=== PATIENT | female | born 1990 | race Caucasian/White ===

== ENCOUNTER 2018-02-02 04:00 | Emergency (ER) | payer SELFPAY ==
[2018-02-02] MEDS ORDERED: Orphenadrine 100 MG Tab.ER PO STA (04:42)
--- NOTE | 2018-02-02 04:49 | EDM.PDOC ---
ED HPI GENERAL MEDICAL PROBLEM - General Chief Complaint: Back Pain or Injury Stated Complaint: SHOULDER AND BACK PAIN Time Seen by Provider: 02/02/18 04:14 Source of Information: Reports: Patient, Significant Other (Boyfriend) History Limitations: Reports: No Limitations - History of Present Illness INITIAL COMMENTS - FREE TEXT/NARRATIVE: The patient states that she has had pain primarily to her left scapular area, that radiates up her neck, down her left arm, and over to the right side, on and off for the past 2 years. She states that the pain makes it difficult for her to sleep. She was seen in an ER in [place] about one year ago, and told that she appeared to have muscle spasms. She saw a chiropractor in [place] about the same time. X-rays were done, which were negative. The patient states that she has tried massage, hot and cold compresses, ibuprofen, and Tylenol, without any lasting relief. She states that she just moved from [place], and has come to the ED this morning because she wants to know what is going on. The patient does not have a PCP. Back Pain Score (Numeric/FACES): 10 - Related Data Allergies Allergy/AdvReac Type Severity Reaction Status Date / Time Penicillins Allergy Other Verified 02/02/18 04:17 Home Meds: Home Meds LORazepam [Ativan] 0.5 mg PO BID PRN 02/02/18 [History] Orphenadrine [Norflex] 1 tab PO Q12H PRN #10 tab.er 02/02/18 [Rx] Past Medical History Psychiatric History: Reports: Anxiety, Panic Attack Social & Family History - Tobacco Use Smoking Status *Q: Never Smoker - Caffeine Use Caffeine Use: Reports: None - Alcohol Use Alcohol Use History: Yes Alcohol Use Frequency: Socially - Recreational Drug Use Recreational Drug Use: No - Living Situation & Occupation Living situation: Reports: , with Family (2 kids) Occupation: Unemployed ED ROS PEDIATRIC - Review of Systems Review Of Systems: ROS reveals no pertinent complaints other than HPI. ED EXAM, GENERAL (PEDS) - Physical Exam Exam: See Below Exam Limited By: No Limitations General Appearance: WD/WN, No Apparent Distress Back Exam: Other (No visible or palpable abnormality to the patient's back, such as swelling, erythema, ecchymosis, or abrasion, however, the patient reports some tenderness to palpation over the left scapular and subscapular muscles.) Extremities: Normal Inspection, Normal Range of Motion, Non-Tender, No Pedal Edema, Normal Capillary Refill Neurological: Alert, Oriented, Normal Cognition, No Motor/Sensory Deficits Psychiatric: Anxious Skin Exam: Warm, Dry, Intact, Normal Color, No Rash Course - Vital Signs Last Recorded V/S: Last Vital Signs Temp 36.3 C 02/02/18 04:12 Pulse 107 H 02/02/18 04:12 Resp 16 02/02/18 04:12 BP 122/99 H 02/02/18 04:12 Pulse Ox 99 02/02/18 04:12 - Orders/Labs/Meds Meds: Medications Discontinued Medications Generic Name Dose Route Start Last Admin Trade Name Luis A PRN Reason Stop Dose Admin Orphenadrine Citrate 100 mg 02/02/18 04:42 Norflex PO 02/02/18 04:43 ONETIME STA - Re-Assessments/Exams Free Text/Narrative Re-Assessment/Exam: 02/02/18 04:44 The patient appears to be suffering from intermittent upper back muscle spasms. I will start her on Norflex, and prescribed a five-day course. If this works, she can follow-up with Dr. Mckenna to potentially get an additional prescription. If it does not work, Dr. Mckenna could order a diagnostic workup. Departure - Departure Time of Disposition: 04:44 Disposition: Home, Self-Care 01 Condition: Good Clinical Impression: Muscle spasm of back - Discharge Information Referrals: PCP,None [Primary Care Provider] - Raysa Mckenna MD [Physician] - Additional Instructions: You were seen in the emergency room for recurrent upper back, neck, and arm pain. Based on your history and physical examination, it appears that you are suffering from muscle spasms. You have been started on the muscle relaxant Norflex. A prescription for Norflex has been sent to the [facility], [address] [place] Take one tablet every 12 hours, starting this evening, Friday, 2017, as prescribed. Follow-up with Dr. Raysa Mckenna later this week, as a primary care physician. If the Norflex works for you, she could potentially prescribe you more. If the Norflex does not work for you, she could potentially order a diagnostic workup. If any other problems, please do not hesitate to return to the ER.
== END 2018-02-02 05:04 | disposition home or self-care (01) ==
LOC: JD.ED 04:00
DX: M62.838 Other muscle spasm (principal); F41.0 Panic disorder [episodic paroxysmal anxiety]; Z88.0 Allergy status to penicillin
CPT/HCPCS: 99283; A9270

== ENCOUNTER 2018-02-03 22:47 | Emergency (ER) | payer SELFPAY ==
--- NOTE | 2018-02-04 00:41 | EDM.PDOC ---
ED HPI GENERAL MEDICAL PROBLEM - General Chief Complaint: Upper Extremity Injury/Pain Stated Complaint: LEFT SIDE SHOULDER/NECK PAIN Time Seen by Provider: 02/04/18 00:30 - History of Present Illness INITIAL COMMENTS - FREE TEXT/NARRATIVE: I went to examine the patient, only to discover the room empty. I'm told that the patient and her boyfriend left few minutes ago, without notifying the nurse. 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: Psychiatric History: Reports: Anxiety, Panic Attack Social & Family History - Family History Family Medical History: Noncontributory - Tobacco Use Smoking Status *Q: Never Smoker - Caffeine Use Caffeine Use: Reports: Coffee, Soda - Recreational Drug Use Recreational Drug Use: Yes - Living Situation & Occupation Living situation: Reports: , with Family (2 kids) Occupation: Unemployed Course - Vital Signs Last Recorded V/S: Last Vital Signs Temp 36.4 C 02/03/18 22:57 Pulse 112 H 02/03/18 22:57 Resp 18 02/03/18 22:57 BP 112/77 02/03/18 22:57 Pulse Ox 98 02/03/18 22:57 Departure - Departure Time of Disposition: 00:40 Disposition: Eloped 07 - Discharge Information Referrals: PCP,None [Primary Care Provider] -
== END 2018-02-04 00:47 | disposition left against medical advice (07) ==
LOC: JD.ED 22:47
DX: Z53.21 Procedure and treatment not carried out due to patient leaving prior to being seen by health care provider (principal)

== ENCOUNTER 2018-11-01 18:06 | Emergency (ER) | payer SELFPAY ==
[2018-11-01] MEDS ORDERED: Sodium Chloride 0.9% 1,000 ML IV SCH (19:15)
--- NOTE | 2018-11-01 19:16 | EDM.PDOC ---
ED HPI GENERAL MEDICAL PROBLEM - General Chief Complaint: Abdominal Pain Stated Complaint: LOWER RIGHT ABD PAIN Time Seen by Provider: 11/01/18 18:56 Source of Information: Reports: Patient, RN Notes Reviewed History Limitations: Reports: No Limitations - History of Present Illness INITIAL COMMENTS - FREE TEXT/NARRATIVE: Patient is a 28-year-old female who presents to the ED for the evaluation of right lower quadrant abdominal pain. The patient states that this started Friday. 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 She states she did not check her temperature so she does not know if she had a fever but she felt hot and cold at this time. She noticed some mild swelling and or a knot in her right lower quadrant. She states that today she can tolerate oral fluids okay but the right lower quadrant pain still lingers. She does not think that she can be , she has a nexplanon implant in her arm. She does not get regular periods. She states that she still has her appendix, does not have a history of ovarian cyst however her mother has a history of ovarian cysts. She would rate her pain at a 7 out of 10 today. She states that she broke up with her last boyfriend around 6 months ago, and is unsure whether or not she could possibly have STD at this time as she was not checked after she broke up with him. She denies any dysuria or vaginal discharge. Right Groin Pain Score (Numeric/FACES): 7 - Related Data Allergies Allergy/AdvReac Type Severity Reaction Status Date / Time Penicillins Allergy Other Verified 11/01/18 18:25 Home Meds: Home Meds . [No Known Home Meds] 11/01/18 [History] Past Medical History - Past Health History Medical/Surgical History: Denies Medical/Surgical History Respiratory History: Reports: Other (See Below) Other Respiratory History: PNA to R lung [employer] History: Reports: Psychiatric History: Reports: Anxiety, Panic Attack - Infectious Disease History Infectious Disease History: Reports: Chicken Pox, Shingles Social & Family History - Family History Family Medical History: Noncontributory - Tobacco Use Smoking Status *Q: Never Smoker - Caffeine Use Caffeine Use: Reports: Coffee, Soda - Recreational Drug Use Recreational Drug Use: No - Living Situation & Occupation Living situation: Reports: , with Family (2 kids) Occupation: Unemployed ED ROS GENERAL - Review of Systems Review Of Systems: See Below Constitutional: Reports: Fever, Chills HEENT: Reports: No Symptoms Respiratory: Reports: No Symptoms Cardiovascular: Reports: No Symptoms Endocrine: Reports: No Symptoms GI/Abdominal: Reports: Abdominal Pain (RLQ/pelvic), Diarrhea, Nausea, Vomiting. Denies: Constipation : Reports: Pain (RLQ/pelvic). Denies: Discharge, Dysuria, Frequency, Urgency Musculoskeletal: Reports: No Symptoms Skin: Reports: No Symptoms Neurological: Reports: No Symptoms Psychiatric: Reports: No Symptoms Hematologic/Lymphatic: Reports: No Symptoms Immunologic: Reports: No Symptoms ED EXAM, GI/ABD - Physical Exam Exam: See Below Exam Limited By: No Limitations General Appearance: Alert, WD/WN, No Apparent Distress Eyes: Bilateral: Normal Appearance Ears: Normal External Exam Nose: Normal Inspection Throat/Mouth: Normal Inspection, Normal Oropharynx Head: Atraumatic, Normocephalic Neck: Normal Inspection, Supple, Non-Tender, Full Range of Motion Respiratory/Chest: No Respiratory Distress, Lungs Clear, Normal Breath Sounds, No Accessory Muscle Use, Chest Non-Tender Cardiovascular: Normal Peripheral Pulses, Regular Rate, Rhythm, No Murmur GI/Abdominal Exam: Normal Bowel Sounds, Soft, No Distention, No Mass, Tender ( RLQ and into her lower right pelvic region into R groin.) (Female) Exam: Deferred Extremities: Normal Inspection, Normal Capillary Refill Neurological: Alert, Oriented, Normal Cognition, No Motor/Sensory Deficits Psychiatric: Normal Affect, Normal Mood Skin Exam: Warm, Dry, Intact, Normal Color, No Rash Course - Vital Signs Last Recorded V/S: Last Vital Signs Temp Pulse 78 11/01/18 18:20 Resp 16 11/01/18 18:20 BP 124/78 11/01/18 18:20 Pulse Ox 98 11/01/18 18:20 - Orders/Labs/Meds Orders: Active Orders 24 hr Category Date Time Status GC/CHLAMYDIA BY PCR [MOLEC] Stat Lab 11/01/18 19:09 Ordered Sodium Chloride 0.9% [Normal Saline] 1,000 ml Med 11/01/18 19:15 Ordered IV ASDIRECTED Medication Orders Sodium Chloride (Normal Saline) 1,000 mls @ 999 mls/hr IV ASDIRECTED MAX Last Admin: 11/01/18 19:34 Dose: 999 mls/hr Labs: Laboratory Tests 11/01/18 11/01/18 11/01/18 Range/Units 19:25 19:25 19:25 WBC 6.39 (3.98-10.04) K/mm3 RBC 4.20 (3.98-5.22) M/mm3 Hgb 12.9 (11.2-15.7) gm/L Hct 38.3 (34.1-44.9) % MCV 91.2 (79.4-94.8) fl MCH 30.7 (25.6-32.2) pg MCHC 33.7 (32.2-35.5) g/dl RDW Std Deviation 38.2 (36.4-46.3) fL Plt Count 191 (182-369) K/mm3 MPV 11.0 (9.4-12.3) fl Neutrophils % (Manual) 59 (40-60) % Band Neutrophils % 0 (0-10) % Lymphocytes % (Manual) 31 (20-40) % Atypical Lymphs % 6 % Monocytes % (Manual) 2 (2-10) % Eosinophils % (Manual) 0 L (0.7-5.8) % Basophils % (Manual) 2 H (0.1-1.2) Toxic Granulation 1+ slight Platelet Estimate Adequate Plt Morphology Comment Normal RBC Morph Comment Normal Sodium 143 (136-145) mEq/L Potassium 3.6 (3.5-5.1) mEq/L Chloride 105 (98-107) mEq/L Carbon Dioxide 29 (21-32) mEq/L Anion Gap 12.6 (5-15) BUN 14 (7-18) mg/dL Creatinine 0.7 (0.55-1.02) mg/dL Est Cr Clr Drug Dosing 110.39 mL/min Estimated GFR (MDRD) > 60 (>60) mL/min BUN/Creatinine Ratio 20.0 H (14-18) Glucose 83 (74-106) mg/dL Calcium 8.9 (8.5-10.1) mg/dL Total Bilirubin 0.4 (0.2-1.0) mg/dL AST 13 L (15-37) U/L ALT 25 (14-59) U/L Alkaline Phosphatase 63 (46-116) U/L Total Protein 7.4 (6.4-8.2) g/dl Albumin 4.0 (3.4-5.0) g/dl Globulin 3.4 gm/dL Albumin/Globulin Ratio 1.2 (1-2) HCG, Qual Negative (NEGATIVE) Urine Color (Yellow) Urine Appearance (Clear) Urine pH (5.0-8.0) Ur Specific [place] (1.005-1.030) Urine Protein (Negative) Urine Glucose (UA) (Negative) Urine Ketones (Negative) Urine Occult Blood (Negative) Urine Nitrite (Negative) Urine Bilirubin (Negative) Urine Urobilinogen (0.2-1.0) Ur Leukocyte Esterase (Negative) Urine RBC (0-5) /hpf Urine WBC (0-5) /hpf Ur Epithelial Cells (0-5) /hpf Urine Bacteria (FEW) /hpf Urine Mucus (FEW) /hpf 11/01/18 Range/Units 20:48 WBC (3.98-10.04) K/mm3 RBC (3.98-5.22) M/mm3 Hgb (11.2-15.7) gm/L Hct (34.1-44.9) % MCV (79.4-94.8) fl MCH (25.6-32.2) pg MCHC (32.2-35.5) g/dl RDW Std Deviation (36.4-46.3) fL Plt Count (182-369) K/mm3 MPV (9.4-12.3) fl Neutrophils % (Manual) (40-60) % Band Neutrophils % (0-10) % Lymphocytes % (Manual) (20-40) % Atypical Lymphs % % Monocytes % (Manual) (2-10) % Eosinophils % (Manual) (0.7-5.8) % Basophils % (Manual) (0.1-1.2) Toxic Granulation Platelet Estimate Plt Morphology Comment RBC Morph Comment Sodium (136-145) mEq/L Potassium (3.5-5.1) mEq/L Chloride (98-107) mEq/L Carbon Dioxide (21-32) mEq/L Anion Gap (5-15) BUN (7-18) mg/dL Creatinine (0.55-1.02) mg/dL Est Cr Clr Drug Dosing mL/min Estimated GFR (MDRD) (>60) mL/min BUN/Creatinine Ratio (14-18) Glucose (74-106) mg/dL Calcium (8.5-10.1) mg/dL Total Bilirubin (0.2-1.0) mg/dL AST (15-37) U/L ALT (14-59) U/L Alkaline Phosphatase (46-116) U/L Total Protein (6.4-8.2) g/dl Albumin (3.4-5.0) g/dl Globulin gm/dL Albumin/Globulin Ratio (1-2) HCG, Qual (NEGATIVE) Urine Color Light yellow (Yellow) Urine Appearance Clear (Clear) Urine pH 6.5 (5.0-8.0) Ur Specific [place] 1.015 (1.005-1.030) Urine Protein Negative (Negative) Urine Glucose (UA) Negative (Negative) Urine Ketones Negative (Negative) Urine Occult Blood Negative (Negative) Urine Nitrite Negative (Negative) Urine Bilirubin Negative (Negative) Urine Urobilinogen 0.2 (0.2-1.0) Ur Leukocyte Esterase Trace H (Negative) Urine RBC 0-5 (0-5) /hpf Urine WBC 0-5 (0-5) /hpf Ur Epithelial Cells 0-5 (0-5) /hpf Urine Bacteria Few (FEW) /hpf Urine Mucus Not seen (FEW) /hpf Meds: Medications Generic Name Dose Route Start Last Admin Trade Name Freq PRN Reason Stop Dose Admin Sodium Chloride 1,000 mls @ 999 mls/hr 11/01/18 19:15 11/01/18 19:34 Normal Saline IV 999 mls/hr ASDIRECTED MAX Administration Discontinued Medications Generic Name Dose Route Start Last Admin Trade Name Freq PRN Reason Stop Dose Admin Iopamidol 100 ml 11/01/18 20:28 11/01/18 20:38 Isovue-370 (76%) IV 11/01/18 20:29 100 ml ONETIME ONE Administration - Re-Assessments/Exams Free Text/Narrative Re-Assessment/Exam: 11/01/18 19:17 Patient presents to the ED for right lower quadrant pain. As she has been having pain in this area for a few days with fevers chills, nausea vomiting I have ordered a CBC, CMP, UA and a GC screen of her urine and an abdominal/ pelvic CT without contrast for further evaluation. I have also ordered IV fluids for management. 11/01/18 21:[address] did not demonstrate any acute abnormalities such as appendicitis or ovarian cysts. Patient's labs have returned and demonstrate that she does not have a UTI, or any other source of bacterial infection at this time. A GC screen of the urine could not be completed as there was a miscommunication and there was a clean catch urine sample obtained. The patient will take herself to the walk-in clinic for a GC screen tomorrow. She wishes to go home. Departure - Departure Time of Disposition: 21:24 Disposition: Home, Self-Care 01 Condition: Fair Clinical Impression: Right lower quadrant abdominal pain - Discharge Information *PRESCRIPTION DRUG MONITORING PROGRAM REVIEWED*: No *COPY OF PRESCRIPTION DRUG MONITORING REPORT IN PATIENT HUGO: No Instructions: Abdominal Pain, Adult, [id number] Referrals: PCP,None [Primary Care Provider] - Forms: ED Department Discharge Additional Instructions: You have been evaluated in the ED tonight for your right lower quadrant pain. Your CT did not demonstrate any acute abnormality such as appendicitis or ovarian cysts that would be consistent with your pain. Your labs did not demonstrate any acute bacterial infection either. Please seek evaluation for a STD screen at your earliest convenience, this can be done at a walk-in clinic or women's health clinic. Please increase your fluid intake and try to take a stool softener to see if promoting a good bowel regimen wouldn't provide some pain relief for you. You may take 500 mg Tylenol/600 mg ibuprofen every 6 hours as needed for pain relief. Do not exceed 4000 mg Tylenol, 35 mg ibuprofen in a 24-hour time span. Please return to the ED if your symptoms change or worsen. - My Orders Last 24 Hours: My Active Orders 11/01/18 19:09 GC/CHLAMYDIA BY PCR [MOLEC] Stat 11/01/18 19:15 Sodium Chloride 0.9% [Normal Saline] 1,000 ml IV ASDIRECTED - Assessment/Plan Last 24 Hours: My Active Orders 11/01/18 19:09 GC/CHLAMYDIA BY PCR [MOLEC] Stat 11/01/18 19:15 Sodium Chloride 0.9% [Normal Saline] 1,000 ml IV ASDIRECTED
[2018-11-01] MEDS ORDERED: Iopamidol 755 Mg/ML 200 ML Bottle IV ONE (20:28)
--- NOTE | 2018-11-01 21:05 | CT ---
CT abdomen and pelvis Technique: Multiple axial sections were obtained from above the dome of the diaphragm inferiorly through the pubic symphysis. Intravenous and oral contrast was utilized. Comparison: No prior abdominal imaging is available. Findings: Visualized lung bases are clear. Liver shows no focal parenchymal abnormality. Gallbladder contains no calcified gallstones. No abnormality is seen within the spleen. Adrenal glands show no nodule. Kidneys show symmetric contrast enhancement without hydronephrosis or mass. Pancreas is within normal limits. Aorta shows no aneurysm. No retroperitoneal adenopathy is seen. Dilated left gonadal vein is noted. No retroperitoneal adenopathy or mesenteric abnormalities are seen. Appendix is visualized and appears normal in size. No pelvic mass or adenopathy is seen. Delayed images shows contrast within the distal ureters as well as within the bladder. Bone window settings were reviewed which appear within normal limits for the patient's age. Impression: 1. 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 2. CT study of the abdomen and pelvis is otherwise unremarkable. Diagnostic code #2
== END 2018-11-01 21:33 | disposition home or self-care (01) ==
LOC: JD.ED 18:06
DX: R10.31 Right lower quadrant pain (principal); Z88.0 Allergy status to penicillin
CPT/HCPCS: 36415; 74177; 80053; 81001; 84703; 85007; 85027; 96360; 99284; J7040; Q9967